=== PATIENT | male | born 1990 | race Caucasian/White ===

== ENCOUNTER 2017-06-18 10:04 | Emergency (ER) | payer OTHER ==
--- NOTE | 2017-06-18 10:17 | EDPHY ---
HPI/HX/ROS/PE/MDM Narrative: CHIEF COMPLAINT: Chest pain HISTORY OF PRESENT ILLNESS: This patient is a healthy 27 year old male complaining of heart pain over the last week and lightheadedness onset this morning. He endorses cocaine use at a concert one week ago, Saturday06/08/17. He had alcohol at that time as well. His chest pain began around 12 hours after, on Saturday. He describes this as a squeezing sensation in his chest and pain in his back on the left, his left shoulder, and right shoulder. This initial episode lasted about 10 minutes. Following this, he continued to feel sore for several days. He felt fatigued throughout the week and did not exercise as usual. He got an EKG with a local primary care physician due to his concern for cardiac damage. Last night , he swam and felt "out of shape" and slightly short of breath. He could not sleep well last night due to stress. This morning, he had repeat chest discomfort and lightheadedness. He has not used any other stimulant drugs including methamphetamines since his initial cocaine use. He did take one benzodiazepine pill given to him to try to relieve his symptoms. Currently, he feels quite anxious, and endorses mild discomfort in his left upper chest. He was nauseous earlier, but this has since resolved. He denies any recent travel or known family history of blood clots. No fever, chills, palpitations, vomiting , diarrhea, urinary complaints, headache. REVIEW OF SYSTEMS: Aside from elements discussed in the HPI, a comprehensive 10-point review of systems was reviewed and is negative. PAST MEDICAL HISTORY: Generalized anxiety disorder. Family history of CAD in mother's family. SOCIAL HISTORY: Former smoker. Works in [employer]. Lives in [place]. VITAL SIGNS: Reviewed by me GENERAL: Well-developed, well-nourished, appears anxious, no respiratory distress. HEENT: Atraumatic. Eyes: No icterus, no injection. Mouth: moist mucous membranes. No erythema or lesions. Neck: supple with no adenopathy. LUNGS: Clear to auscultation bilaterally, no wheezes, rhonchi or rales. CARDIAC: Regular rate and rhythm, no rubs, murmurs or gallops. ABDOMEN: Soft, nontender, nondistended, bowel sounds normal. BACK: No CVA tenderness. EXTREMITIES: No trauma. No edema. Range of motion is normal throughout. NEURO: Alert and oriented, grossly nonfocal. SKIN: Warm and dry, no rash. PSYCHIATRIC: Normal mentation, no agitation. Portions of this note were transcribed by a medical sonographer. I personally performed a history, physical exam, medical decision making, and confirmed accuracy of information the transcribed note. ED Course: 12-LEAD EKG: Please see the full report in [facility]. My interpretation: Normal sinus rhythm, rate 86 27 y/o male presents with ten day history of fatigue and chest discomfort onset 12 hours after using cocaine 06/08/17. The patient is quite anxious during my interview. EKG shows no evidence of ischemic changes. IV established. Plan for labs including CBC, BMP, Troponin. Administered 325mg PO Aspirin and 1L IV NS. Laboratory studies unremarkable. Chest x-ray normal. Plan to administer 1mg IV Ativan for symptom relief. Following administration Ativan the patient reports feeling significantly improved. His tachycardia has resolved. The patient is feeling relieved following medication administration. Plan to discharge home in good condition. Follow up and return precautions discussed. He has been given a referral to a primary care physician so he can pursue outpatient evaluation including stress test. The patient is comfortable with this plan. MDM: After history and physical examination, the differential for chest pain was considered, including but not limited to, drug induced myocardial ischemia, acute coronary syndrome, pulmonary embolus, chest wall pain, anxiety, panic attack, GERD, pleural inflammation and pulmonary infectious causes. - Data Points Imaging Results: Imaging Impressions Chest X-Ray 06/18/17 10:31 Impression: Normal. Imaging: I viewed and interpreted images myself Laboratory Results: Laboratory Results 06/18/17 10:18 06/18/17 10:18 06/18/17 06/18/17 10:18 10:18 WBC 8.09 10^3/uL 10^3/uL (3.80-9.50) RBC 5.36 10^6/uL 10^6/uL (4.40-6.38) Hgb 17.0 g/dL g/dL (13.7-17.5) Hct 46.4 % % (40.0-51.0) MCV 86.6 fL fL (81.5-99.8) MCH 31.7 pg pg (27.9-34.1) MCHC 36.6 g/dL g/dL (32.4-36.7) RDW 12.2 % % (11.5-15.2) Plt Count 307 10^3/uL 10^3/uL (150-400) MPV 9.6 fL fL (8.7-11.7) Neut % (Auto) 69.3 % % (39.3-74.2) Lymph % (Auto) 21.5 % % (15.0-45.0) [place] % (Auto) 7.5 % % (4.5-13.0) Eos % (Auto) 0.7 % % (0.6-7.6) Baso % (Auto) 0.6 % % (0.3-1.7) Nucleat RBC Rel Count 0.0 % % (0.0-0.2) Absolute Neuts (auto) 5.60 10^3/uL 10^3/uL (1.70-6.50) Absolute Lymphs (auto) 1.74 10^3/uL 10^3/uL (1.00-3.00) Absolute Monos (auto) 0.61 10^3/uL 10^3/uL (0.30-0.80) Absolute Eos (auto) 0.06 10^3/uL 10^3/uL (0.03-0.40) Absolute Basos (auto) 0.05 10^3/uL 10^3/uL (0.02-0.10) Absolute Nucleated RBC 0.00 10^3/uL 10^3/uL (0-0.01) Immature Gran % 0.4 % % (0.0-1.1) Immature Gran # 0.03 10^3/uL 10^3/uL (0.00-0.10) Sodium 142 mEq/L mEq/L (134-144) Potassium 3.9 mEq/L mEq/L (3.5-5.2) Chloride 103 mEq/L mEq/L (97-110) Carbon Dioxide 23 mEq/l mEq/l (22-31) Anion Gap 16 mEq/L mEq/L (8-16) BUN 13 mg/dL mg/dL (7-23) Creatinine 0.9 mg/dL mg/dL (0.7-1.3) Estimated GFR > 60 Glucose 102 mg/dL H mg/dL (70-100) Calcium 10.4 mg/dL mg/dL (8.5-10.4) Creatine Kinase 98 IU/L IU/L (0-224) CK-MB (CK-2) Fraction 0.52 ng/mL ng/mL (0.00-3.19) Troponin I < 0.012 ng/mL ng/mL (0.000-0.034) Lipase 81 IU/L IU/L (23-300) Medications Given: Discontinued Medications Aspirin (Aspirin) 324 mg PO EDNOW ONE Stop: 06/18/17 10:32 Last Admin: 06/18/17 10:38 Dose: 324 mg Sodium Chloride (Ns) 500 mls @ 1,000 mls/hr IV EDNOW ONE PRN Reason: Protocol Stop: 06/18/17 11:00 Last Admin: 06/18/17 10:38 Dose: 500 mls Lorazepam (Ativan Injection) 1 mg IVP EDNOW ONE Stop: 06/18/17 11:22 Last Admin: 06/18/17 11:30 Dose: 1 mg General Initial Vital Signs: Initial Vital Signs Temperature (C) 36.6 C 06/18/17 10:07 Heart Rate 84 06/18/17 10:07 Respiratory Rate 18 06/18/17 10:07 Blood Pressure 137/101 H 06/18/17 10:07 O2 Sat (%) 96 06/18/17 10:07 O2 Delivery Mode Room Air Allergies/Adverse Reactions: No Known Allergies Allergy (Unverified 06/18/17 10:06) Home Medications: Medication Instructions Recorded NK [No Known Home Meds] 06/18/17 Departure - Departure Disposition: Home, Routine, Self-Care Clinical Impression: History of illicit drug use Chest pain Qualifiers: Chest pain type: unspecified Qualified Code(s): R07.9 - Chest pain, unspecified Condition: Good Instructions: Chest Pain (ED) Additional Instructions: 1. Follow up with a primary care provider for further cardiac evaluation and outpatient stress test. 2. Please avoid illicit drug use in the future. 3. Return to the emergency department for increased chest pain, shortness of breath, or other worsening of condition or concerns. Referrals: Jonas Chang MD [Medical Doctor] - As per Instructions Report Scribed for: Alysia Sun Report Scribed by: Mary Murillo Date of Report: 06/18/17 Time of Report: 10:17
--- NOTE | 2017-06-18 10:18 | CPEKG ---
Heart Rate: 86 RR Interval: 698 P-R Interval: 164 QRSD Interval: 98 QT Interval: 368 QTC Interval: 440 P Tully: 78 QRS Tully: 35 T Wave Tully: 8 EKG Severity - NORMAL ECG - EKG Impression: SINUS RHYTHM Electronically Signed By: Alysia Sun 18-Jun-2017 17:23:16
[2017-06-18] MEDS ORDERED: NS 500 ML IV ONE (10:31)
[2017-06-18] MEDS ORDERED: ASPIRIN 81 MG CHEWABLE TAB PO ONE (10:31)
[2017-06-18 10:37] LABS: % IMMATURE GRANULYOCYTES 0.4 % (0.0-1.1); ABSOLUTE IMMATURE GRANULOCYTES 0.03 10^3/uL (0.00-0.10); ADD DIFF? NO; ADD MORPH? NO; ADD SCAN? NO; ATYPICAL LYMPHOCYTE FLAG 0 (0-99); FRAGMENT RBC FLAG 0 (0-99); HEMATOCRIT 46.4 % (40.0-51.0); LEFT SHIFT FLG 0 (0-99); LIPEMIA HEMOLYSIS FLAG 90 (0-99); MEAN CELL HEMOGLOBIN 31.7 pg (27.9-34.1); MEAN CELL HEMOGLOBIN CONCENTR. 36.6 g/dL (32.4-36.7); MEAN CELL VOLUME 86.6 fL (81.5-99.8); MEAN PLATELET VOLUME 9.6 fL (8.7-11.7); PLATELET CLUMPS FLAG 20 (0-99); PLATELET COUNT 307 10^3/uL (150-400); RED BLOOD CELL COUNT 5.36 10^6/uL (4.40-6.38); RED CELL DISTRIBUTION WIDTH 12.2 % (11.5-15.2)
[2017-06-18 10:46] LABS: ANION GAP 16 mEq/L (8-16); CALCIUM 10.4 mg/dL (8.5-10.4); CARBON DIOXIDE 23 mEq/l (22-31); CHLORIDE 103 mEq/L (97-110); CREATININE 0.9 mg/dL (0.7-1.3); GLOMERULAR FILTRATION RATE > 60; GLUCOSE 102 mg/dL (70-100); POTASSIUM 3.9 mEq/L (3.5-5.2); SODIUM 142 mEq/L (134-144)
[2017-06-18 10:57] LABS: CREATINE KINASE-MB FRACTION 0.52 ng/mL (0.00-3.19); TROPONIN I < 0.012 ng/mL (0.000-0.034)
[2017-06-18] MEDS ORDERED: LORazepam 2 MG/ML INJ IVP ONE (11:21)
[2017-06-18 11:23] VITALS: PULSE 81
[2017-06-18 13:10] VITALS: BP 122/78; RESP 16; TEMP 98.4; O2SAT 98
== END 2017-06-18 13:10 | disposition home or self-care (01) ==
PROC: 3E0337Z Introduction of Electrolytic and Water Balance Substance into Peripheral Vein, Percutaneous Approach (ICD-10-PCS; principal; 2017-06-18)
DX: R07.9 Chest pain, unspecified (principal); E86.9 Volume depletion, unspecified; Z87.891 Personal history of nicotine dependence; Z87.898 Personal history of other specified conditions
CPT/HCPCS: 96374; J2060